=== PATIENT | female | born 1970 | race African-American/Black ===

== ENCOUNTER 2022-10-02 09:39 | Inpatient (IN) | payer SELFPAY ==
[2022-10-02] VITALS (21 sets, daily range): BP systolic 135–164; BP diastolic 48–79; PULSE 77–91; RESP 16–29; TEMP 36.5–37.1; O2SAT 96–100; BMI 45.6
--- NOTE | ~2022-10-02 | US_ITS ---
EXAMINATION: US pelvic complete DATE: 10/03/2022 12:00 INDICATION: Fibroid uterus. Heavy menses. Comparison:No prior studies for comparison. TECHNIQUE: Multiple transabdominal and endovaginal sonographic images of the pelvis performed. FINDINGS: The uterus measures 17.2 x 11.2 x 13.2 cm. Uterus is diffusely heterogeneous with multiple ill-defined masses, some of which are partially calcified, compatible with fibroids. Largest discrete fibroid measures approximately 10 cm. Endometrium is not delineated due to fibroid changes. The right ovary measures 3.4 x 3.6 x 3.3 cm. There is normal vascularity. The left ovary is not visua lized. There is no free fluid in the pelvis. There are no abnormal masses seen on either side. IMPRESSION: 1. Enlarged fibroid uterus. Endometrium is obscured by fibroid changes. Reviewed, dictated and finalized at location L.
--- NOTE | ~2022-10-02 | XR_ITS ---
EXAMINATION: XR chest 2V DATE: 10/02/2022 10:25 INDICATION: Left anterior intermittent chest pain. TECHNIQUE: Frontal and lateral views of the chest were obtained. COMPARISON: None. FINDINGS: There is no pneumonia, pleural effusion, or pneumothorax. The heart size is normal. IMPRESSION: 1. No acute cardiopulmonary disease. Reviewed, dictated and finalized at location A.
--- NOTE | 2022-10-02 09:41 | ECG_ITS ---
Measurements Intervals [place] Rate: 89 P: 75 SD: 162 QRS: -25 QRSD: 97 T: 15 QT: 370 QTc: 450 Interpretive Statements SINUS RHYTHM BORDERLINE LEFT AXIS DEVIATION [QRS AXIS < -20] NO PREVIOUS ECG AVAILABLE FOR COMPARISON Electronically Signed On 10-02-2022 11:50:41 CDT by Ole Tabor M.D.
--- NOTE | 2022-10-02 09:48 | ED.CHESTPAIN ---
HPI - Chest Pain General Chief Complaint: Chest Pain <CASSIE Lopez Last Filed: 10/02/22 18:31> Stated Complaint: chest pain <CASSIE Lopez Last Filed: 10/02/22 18:31> Time Seen by Provider: 10/02/22 09:46 <CASSIE Lopez Last Filed: 10/02/22 18:31> Source: patient <CASSIE Lopez Last Filed: 10/02/22 18:31> Mode of arrival: ambulatory <CASSIE Lopez Last Filed: 10/02/22 18:31> Limitations: no limitations <CASSIE Lopez Last Filed: 10/02/22 18:31> History of Present Illness HPI narrative: Patient is a 52-year-old female who presents to the ED with c/o L sided CP. Patient reports she developed pain in her left-sided upper chest yesterday afternoon. The pain has been intermittent since then, reported as a brief sharp pain occurring every few minutes. She states pain is worse with movement of her trunk and extremities, denies aggravation with exertion. Pain somewhat radiates to left upper back, denies radiation to neck or jaw, left arm. She has not tried anything for the pain. She had an episode of pain this morning at work and her coworkers recommended she come here. Patient denies any significant pain currently. Denies trouble breathing, shortness of breath, lower extremity pain or swelling, recent cough or cold symptoms, abdominal pain, nausea, vomiting, fevers. Patient denies history of hypertension, hyperlipidemia, diabetes, smoking. Denies history of blood clots. Denies family history of heart disease. Patient mentions she has been increasingly stressed lately and is nearing the anniversary of her daughter's . <CASSIE Lopez Last Filed: 10/02/22 18:31> Related Data Home Medications: Home Medications Medication Instructions Recorded Confirmed omeprazole 20 mg tablet,delayed 20 mg PO BID 10/02/22 10/02/22 release <CASSIE Lopez Last Filed: 10/02/22 18:31> Allergies/Adverse Reactions: Allergies Allergy/AdvReac Type Severity Reaction Status Date / Time No Known Allergies Allergy Verified 10/02/22 10:27 <Nissa Lockhart PA-C - Last Filed: 10/02/22 18:31> Review of Systems Review of Systems: CONSTITUTIONAL: Denies fever, chills, or sweats. EYES: Denies visual changes, redness, or discharge. ENT: Denies rhinorrhea, congestion, sore throat, or otalgia. CARDIOVASCULAR: See HPI. RESPIRATORY: Denies cough, pleuritic pain, or dyspnea. GASTROINTESTINAL: Denies abdominal pain, nausea, vomiting. MUSCULOSKELETAL: See HPI. NEUROLOGIC: Denies headache, numbness, or weakness. <Nissa Lockhart PA-C - Last Filed: 10/02/22 18:31> All systems reviewed & are unremarkable except as noted in HPI and below <Nissa Lockhart PA-C - Last Filed: 10/02/22 18:31> [facility] Past Medical History Medical History: Medical History Anemia Chronic GERD Uterine fibroid <Nissa Lockhart PA-C - Last Filed: 10/02/22 18:31> Surgical History Surgical History: Surgical History H/O section 2 H/O eye surgery H/O foot surgery <Nissa Lockhart PA-C - Last Filed: 10/02/22 18:31> Family History Family History: Family History Mother Hypertension Father Hypertension <Nissa Lockhart PA-C - Last Filed: 10/02/22 18:31> Social History Social History: Social History Social History: She is single and has 2 children. She works for a [employer]. She is lifelong nonsmoker. code status full code Smoking status: Never smoker Alcohol intake: current Drinks per week: 6 Substance use: never Lack of Transportation: No Lack of Food: Never True Cur
[2022-10-02 10:11] LABS: Basophils Absolute Auto 0.1 K/mm3 (0.0-0.1); Basophils Percent Auto 0.7 % (0.2-1.2); Eosinophils Absolute Auto 0.2 K/mm3 (0-0.3); Eosinophils Percent Auto 2.2 % (0-4.4); Immature Granulocyte Absolute 0.03 K/mm3 (0.00-0.031); Immature Granulocyte Percent A 0.4 % (0-0.5); Lymphocytes Absolute Auto 1.41 K/mm3 (0.9-3.2); Lymphocytes Percent Auto 18.4 % (18.3-44.2); Mean Corpuscular Volume 76.1 fl (80-100); Mean Platelet Volume 10.2 fl (7.4-10.4); Monocytes Absolute Auto 0.8 K/mm3 (0.1-0.6); Monocytes Percent Auto 10.2 % (2.6-8.5); Neutrophils Absolute Auto 5.2 K/mm3 (1.3-6.7); Neutrophils Percent Auto 68.1 % (45.5-73.1); Nucleated Red Blood Cells Perc 0.5 % (0.0-0.2); Platelet Count Result 507 k/mm3 (150-375); Red Blood Count 2.89 M/mm3 (4.2-5.4); Red Cell Distribution Width 24.1 % (11.5-14.5); White Blood Count 7.7 K/mm3 (4.5-10.0)
[2022-10-02 10:20] LABS: Alanine Aminotransferase 16 U/L (6-35); Albumin Level 4.4 g/dL (3.5-5.1); Alkaline Phosphatase 43 U/L (38-126); Anion Gap 7 mmol/L (8-16); Aspartate Amino Transferase 25 U/L (14-36); Bilirubin,Total 0.2 mg/dL (0.2-1.3); Blood Urea Nitrogen 3 mg/dL (7-17); Calcium 9.1 mg/dL (8.4-10.2); Carbon Dioxide 22 mmol/L (22-30); Chloride 106 mmol/L (98-107); Estimated CRCL calculation 115 ml/min; Estimated Glomerular Filt Rate > 60; Glucose 94 mg/dL (65-110); Lipase 98 U/L (23-300); Potassium 3.7 mmol/L (3.4-5.0); Sodium 135 mmol/L (137-145)
[2022-10-02 10:26] LABS: Hemoglobin 5.5 g/dL (12.0-15.0)
[2022-10-02 10:27] LABS: Anisocytosis 2+ (NORMAL); Hypochromasia 2+ (NORMAL); Microcytosis 1+ (NORMAL); Platelet Estimate Increased (Adequate); Schistocytes None Seen (NORMAL)
[2022-10-02 10:29] LABS: Partial Thromboplastin Time 26.3 SECONDS (22.3-36.8)
[2022-10-02 10:31] LABS: Troponin I < 0.012 ng/mL (0.000-0.034)
[2022-10-02] MEDS: ASPIRIN 81 MG CHEWABLE TABLET 324 MG PO (10:31)
[2022-10-02 11:00] LABS: Immature Reticulocyte Fraction 5.9 % (3.0-15.9); Reticulocyte Hemoglobin Conten 13.4 pg (28.2-35.7); Reticulocyte Percent 1.26 % (0.7-4.3); Reticulocytes Absolute 0.04 M/mm3 (0.02-0.1)
[2022-10-02 11:02] LABS: Lactate Dehydrogenase 170 U/L (120-246)
[2022-10-02 11:10] LABS: Transferrin 372 mg/dL (206-381)
[2022-10-02 11:15] LABS: Iron 22 ug/dL (37-170)
--- NOTE | 2022-10-02 11:20 | PC.NURSE ---
Blood transfusion consent signed by pt. Pt denies any questions/concerns.
[2022-10-02 11:24] LABS: Percent Iron Saturation 4 % (20-50)
[2022-10-02 11:51] LABS: Ferritin 3.83 ng/mL (11.1-264)
[2022-10-02 12:09] LABS: Folic Acid 6.1 ng/mL (2.76->20)
--- NOTE | 2022-10-02 12:27 | PM.IMHP ---
H&P: HPI History of Present Illness Date/Time: 10/02/22 12:27 Chief Complaint: Chest pain Narrative: This is a 52-year-old female patient who has iron deficiency anemia. She came into the emergency room with complaints of left chest pain. She developed left chest pain that started yesterday. The patient had a sudden brief period of sharp pain that lasts a few minutes. Currently she is not having any symptoms. No nausea vomiting no diarrhea. No bloody stools. The patient stated she does have a uterine fibroid and that she wishes going through menopause. The patient will have a heavy. One month the not have another. For 2 months. The patient is seeking medical advice from her OBGYN. The patient had an episode of pain at work and her co-worker recommended that she come to the emergency room. She has no radiation of pain to her neck or jaw or left arm. She has no previous history of a cardiac disease and only has a history of GERD. No fever chills. Her H&H was found to be 5.5 and 22.0. Her MCV is 76.1. She has microcytic anemia. The patient has a known history of iron deficiency anemia. Ferritin is low at 3.83 TIBC is 534. Iron is 22. Cardiac enzymes are negative x2. Thyroid levels normal. Chest x-ray is no acute cardiopulmonary disease. The patient was given an aspirin and IV fluids. She is to get 2 units of packed red blood cells. The patient is being admitted to observation status on the date of service of 10/02/2022 Review of Systems Review of Systems: All systems reviewed & are unremarkable except as noted in HPI and below Constitutional: Constitutional: Reports as per HPI and Reports no additional constitutional complaints Eyes: Eyes: Reports as per HPI and Reports no additional eye complaints ENT: Reports system reviewed and no additional complaints, except as documented and Reports Normal hearing present Cardiovascular: Cardiovascular: Reports no additional cardiovascular complaints Respiratory: Respiratory: Reports no additional respiratory complaints and Reports no additional respiratory complaints Gastrointestinal: Gastrointestinal: Reports as per HPI and Reports no additional gastrointestinal complaints Musculoskeletal: Musculoskeletal: Reports no additional musculoskeletal complaints Integumentary/Breasts: Skin/Breast: Reports system reviewed and no additional complaints, except as docu and Reports as per HPI Neurologic: Reports system reviewed and no additional complaints, except as documented, Reports as per HPI and Reports Normal hearing present Psychiatric: Psychiatric: Reports no additional psychiatric complaints and Reports as per HPI Endocrine: Endocrine: Reports no additional endocrine complaints Hematologic/Lymphatic: Hematologic/Lymphatic: Reports no additional hematologic/lymphatic complaints Allergic/Immunologic: Allergic/Immunologic: Reports no additional allergic/immunologic complaints [facility] Past Medical History Medical History (Updated 10/02/22 @ 12:28 by Mague Callahan NP) Anemia Chronic GERD Uterine fibroid Surgical History Surgical History (Updated 10/02/22 @ 12:28 by Mague Callahan NP) H/O section 2 H/O eye surgery H/O foot surgery Family History Family History Mother Hypertension Father Hypertension Social History Social History (Updated 10/02/22 @ 16:56 by Mague Callahan NP) Social History: She is single and has 2 children. She works for a [employer]. She is lifelong nonsmoker. code status full code Smoking status: Never smoker Alcohol intake: current Drinks per week: 6 Substance use: never Lack of Transportation: No Lack of Food: Never True Current Housing: I Have Housing Concerned About Future Housing: No Difficulty Paying Gas/Electric Bills: No Difficulty Paying for Meds: No Currently Unemployed: No Education: High School Diploma/GED Difficult
[2022-10-02 13:07] LABS: Troponin I < 0.012 ng/mL (0.000-0.034)
--- NOTE | 2022-10-02 14:26 | ADMGEN ---
This patient, Marie Huizar, was admitted to Medical Room 349-01. Patient/family oriented to hospital policies and general routines including ID bracelet, bed and alarms, visiting hours, pain management, procedures, bathroom and other care routines, personal items, smoking policy, room service/diet, and visiting hours. Information on how to activate the Rapid Response Team has been discussed. Patient/Family are encouraged to report perceived risks to care and to ask questions if they do not understand what they are told or what they should do.
[2022-10-02] MEDS: SODIUM CHLORIDE 0.9% IV 250 ML 30 ML IV CONT (15:29)
[2022-10-02 16:54] LABS: Troponin I < 0.012 ng/mL (0.000-0.034)
[2022-10-02 22:57] LABS: Hemoglobin 7.6 g/dL (12.0-15.0)
[2022-10-03 05:10] VITALS: BP 156/71; PULSE 83; RESP 17; TEMP 36; O2SAT 100
[2022-10-03 05:59] LABS: Hematocrit 25.6 % (37.0-47.0)
[2022-10-03 06:16] LABS: Alanine Aminotransferase 15 U/L (6-35); Albumin Level 3.9 g/dL (3.5-5.1); Alkaline Phosphatase 48 U/L (38-126); Anion Gap 4 mmol/L (8-16); Aspartate Amino Transferase 29 U/L (14-36); Bilirubin,Total 0.5 mg/dL (0.2-1.3); Blood Urea Nitrogen 5 mg/dL (7-17); Calcium 8.8 mg/dL (8.4-10.2); Carbon Dioxide 25 mmol/L (22-30); Chloride 104 mmol/L (98-107); Estimated CRCL calculation 114 ml/min; Estimated Glomerular Filt Rate > 60; Glucose 106 mg/dL (65-110); Magnesium 1.9 mg/dL (1.6-2.3); Potassium 3.5 mmol/L (3.4-5.0); Sodium 133 mmol/L (137-145)
[2022-10-03] MEDS: ACETAMINOPHEN 500 MG TABLET 1000 MG PO ×2 (06:55→12:27)
[2022-10-03] MEDS: PANTOPRAZOLE 40 MG TABLET PO ×2 (08:16→17:16)
[2022-10-03] MEDS: FERROUS SULFATE 325 MG TABLET DR PO (08:16)
[2022-10-03 09:04] LABS: Hematocrit 26.1 % (37.0-47.0); Hemoglobin 7.2 g/dL (12.0-15.0)
--- NOTE | 2022-10-03 11:18 | PM.IMPN ---
Progress Note: A&P Assessment and Plan (1) Anemia: Code(s): D64.9 - Anemia, unspecified Status: Acute Assessment and Plan: Microcytic anemia with the history of chronic iron deficiency anemia. The patient stated that she has not been taking her iron and that she has a known diagnosis of are iron deficiency anemia. Resume iron supplement. STAFF PHYSICAL THERAPIST consult (2) Left-sided chest wall pain: Code(s): R07.89 - Other chest pain Status: Acute Assessment and Plan: Continue to trend troponin. The patient has no further chest pain. (3) Uterine fibroid: Code(s): D25.9 - Leiomyoma of uterus, unspecified Status: Acute Assessment and Plan: The patient stated that she will miss periods and then have a heavy. When she finally has 1. I explained that she needed to follow-up with her OBGYN. The patient stated she does have uterine fibroids and is planning on some type of procedure. Subjective Date/time seen: 10/03/22 11:18 Interval history: No new complaints Exam Const: General: cooperative, healthy appearing, comfortable, no acute distress, well developed, awake, Physically active, average body habitus and well nourished Nutritional Appearance: average body habitus and well nourished Orientation/consciousness: oriented to person, oriented to place, oriented to time and patient oriented x3 Limitations: no limitations HENMT: Head: normal to inspection, No palpable skull fracture present, normocephalic and atraumatic Ears: hearing grossly normal bilaterally and external ears normal Face/Nose/Sinus: Normal external nose present and Normal nares present Eyes: General: appearance normal, both eyes and all related structures Alignment and Position: alignment normal Periorbital: periorbital findings normal Eyelids: eyelids normal Sclera: sclerae normal Pupils: Equal, round and reactive pupils present EOM: EOMs intact bilaterally Neck: Neck: normal visual inspection, full ROM, no lymphadenopathy, trachea midline and supple Chest: Chest palpation & inspection: normal inspection of the chest Resp: Effort & Inspection: normal respiratory effort Auscultation: clear to auscultation bilaterally Cardio: Palpation: normal PMI Rate: regular rate Rhythm: regular rhythm Heart sounds: S1 normal heart sound present and S2 normal heart sound present Peripheral pulses: Peripheral pulses 2+ throughout GI: Inspection: normal to inspection Auscultation: normal bowel sounds Rectal Exam: deferred : General: Yes no CVA tenderness Back/Spine/Pelvis: Back: no CVA tenderness Cervical Spine: cervical ROM normal Thoracic/Lumbar Spine: thoracic and lumbar spine normal to inspection Pelvis: no pain with anterior-posterior compression Skin: General skin exam: normal color Lesions: no lesions Rashes: no rashes Trauma: no lacerations or abrasions Wounds: no wounds Hair: normal Nails: normal Neuro: General: oriented to person, oriented to place, oriented to time and patient oriented x3 Cranial nerves: Yes Equal, round and reactive pupils present and Yes Normal hearing present Cognition (Neuro): normal cognition Speech: normal speech Gait exam (Neuro): Normal gait present Motor exam (neuro): 5/5 motor strength present throughout Sensory Exam: normal sensation Extrem: General: normal to inspection Right upper extremity: normal to inspection and shoulder/upper arm Left upper extremity: normal to inspection and shoulder/upper arm Right lower extremity: normal to inspection and edema Left lower extremity: normal to inspection and edema Psych: Appearance: grossly normal Mental Status: mental status grossly normal Speech and movement: Normal speech and movement present Affect: normal affect Attitude: cooperative Thought process: Normal thought process present Insight: Good insight present (Psych) Judgement: Good judgement present (Psych) Objective Data Vital Signs Vital Signs: Vital Signs - 24
--- NOTE | 2022-10-03 12:52 | WPDCN ---
Assessment and Plan Assessment and plan (1) Uterine fibroid: Code(s): D25.9 - Leiomyoma of uterus, unspecified Status: Acute Assessment and Plan: I discussed with her what fibroids are and discuss treatment options to include hysterectomy myomectomy and also discussed uterine fibroid embolization. Discussed that the fibroids is the cause of the bleeding but we also have to rule out any type of endometrial malignancy and not assume it is just the fibroids. Initially she stated she would prefer not to have a surgery. I discussed with her that before she has anything done she has to get the complete workup which includes an endometrial biopsy and her anemia needs to be improved before a definitive procedure is performed. Discussed in detail what is involved with a myomectomy and with a hysterectomy. My recommendation at her age since she is still in early menopause transition would be a hysterectomy after the appropriate workup. I do not feel she would have a success with a uterine fibroid embolization and has higher risk with abdominal myomectomy, she is not an optimal candidate for a laparoscopic myomectomy. She stated that prior to this admission she was going to make an appointment with someone that was closer to where she lived. I discussed with her options of oral progesterone which may help minimize the menorrhagia until she has the endometrial biopsy and decides on a procedure. She agrees with starting the oral progesterone. Discussed side effects of the progesterone. I also discussed with her option of an IUD progesterone only which informed her that her uterus may not be able to accommodate this but she states she would not want any type of IUD. Her questions were answered. I will start the progesterone. She will need to continue the iron therapy. The rest of her workup will need to be performed outpatient. She will need to make an appointment when she is released to see me or her preferred/closer provider to get the appropriate workup with an endometrial biopsy before scheduling a procedure. I will sign off on her care. She should be provided with my office number to schedule the follow-up. (2) Symptomatic anemia: Code(s): D64.9 - Anemia, unspecified Status: Acute HPI Data of Consult Date/Time: 10/03/22 12:52 Requesting Physician: Aleta Collins DO Primary Care Provider: PHYSICIAN NOT ON STAFF Consult Narrative Reason for consult: Fibroid uterus Narrative: Marie Huizar is a 52 year old female para 2 perimenopausal female presented to the emergency department for left-sided chest pain and she was found to be severely anemic. She does have a known history of a fibroid uterus. She states that she was going to get evaluated for the fibroids after her insurance was active after October 20. She does have a long history menorrhagia which she states is for 2 days and then regular flow for 5 days. She has had mostly monthly periods there has only been 1 time where she skipped a period for 2 months. She is also having hot flashes and night sweats. Denies any bleeding in between periods. Denies dysmenorrhea. She is not tried any medication or prescribed any medication to help with her bleeding. Ultrasound from today confirmed a large fibroid uterus. Patient has received blood during this admission. She states that she started her period a few days ago. Review of Systems Review of Systems: All systems reviewed & are unremarkable except as noted in HPI and below Constitutional: Constitutional: Reports as per HPI Eyes: Eyes: Reports no additional eye complaints Cardiovascular: Cardiovascular: Reports as per HPI Respiratory: Respiratory: Reports as per HPI Gastrointestinal: Gastrointestinal: Denies abdominal pain Genitourinary: Genitourinary: Reports as per HPI Psychiatric: Psychiatric: Reports no additional psychiatric complaints Endocrine: Comments: Night sweats
[2022-10-03 13:49] VITALS: BP 143/61; PULSE 73; RESP 18; TEMP 36.6; O2SAT 98
[2022-10-03 13:57] LABS: Hematocrit 26.8 % (37.0-47.0); Hemoglobin 7.3 g/dL (12.0-15.0)
[2022-10-03 20:13] VITALS: BP 158/75; PULSE 71; RESP 14; TEMP 36.8; O2SAT 99
[2022-10-03 20:47] LABS: Hematocrit 25.7 % (37.0-47.0)
[2022-10-04] VITALS (12 sets, daily range): BP systolic 142–172; BP diastolic 60–74; PULSE 71–90; RESP 14–18; TEMP 36.1–36.9; O2SAT 100
[2022-10-04 02:48] LABS: Hematocrit 25.6 % (37.0-47.0)
[2022-10-04 02:55] LABS: Hemoglobin 6.9 g/dL (12.0-15.0)
[2022-10-04] MEDS: hydrALAZINE HCL 20 MG/ML VIAL 10 MG IV PUSH (05:59)
[2022-10-04] MEDS: PANTOPRAZOLE 40 MG TABLET PO ×2 (08:24→17:34)
[2022-10-04] MEDS: FERROUS SULFATE 325 MG TABLET DR PO (08:24)
[2022-10-04 08:40] LABS: Hematocrit 26.9 % (37.0-47.0); Hemoglobin 7.4 g/dL (12.0-15.0)
--- NOTE | 2022-10-04 11:41 | PM.IMPN ---
Progress Note: A&P Assessment and Plan (1) Anemia: Code(s): D64.9 - Anemia, unspecified Status: Acute Assessment and Plan: Microcytic anemia with the history of chronic iron deficiency anemia. The patient stated that she has not been taking her iron and that she has a known diagnosis of are iron deficiency anemia. Resume iron supplement. AMBULANCE OFFICER consult (2) Left-sided chest wall pain: Code(s): R07.89 - Other chest pain Status: Acute Assessment and Plan: Continue to trend troponin. The patient has no further chest pain. (3) Uterine fibroid: Code(s): D25.9 - Leiomyoma of uterus, unspecified Status: Acute Assessment and Plan: The patient stated that she will miss periods and then have a heavy. When she finally has 1. I explained that she needed to follow-up with her OBGYN. The patient stated she does have uterine fibroids and is planning on some type of procedure. Subjective Date/time seen: 10/04/22 11:41 Interval history: No complaints, still anemic, still bleeding. Exam Const: General: cooperative, healthy appearing, comfortable, no acute distress, well developed, awake, Physically active, average body habitus and well nourished Nutritional Appearance: average body habitus and well nourished Orientation/consciousness: oriented to person, oriented to place, oriented to time and patient oriented x3 Limitations: no limitations HENMT: Head: normal to inspection, No palpable skull fracture present, normocephalic and atraumatic Ears: hearing grossly normal bilaterally and external ears normal Face/Nose/Sinus: Normal external nose present and Normal nares present Eyes: General: appearance normal, both eyes and all related structures Alignment and Position: alignment normal Periorbital: periorbital findings normal Eyelids: eyelids normal Sclera: sclerae normal Pupils: Equal, round and reactive pupils present EOM: EOMs intact bilaterally Neck: Neck: normal visual inspection, full ROM, no lymphadenopathy, trachea midline and supple Chest: Chest palpation & inspection: normal inspection of the chest Resp: Effort & Inspection: normal respiratory effort Auscultation: clear to auscultation bilaterally Cardio: Palpation: normal PMI Rate: regular rate Rhythm: regular rhythm Heart sounds: S1 normal heart sound present and S2 normal heart sound present Peripheral pulses: Peripheral pulses 2+ throughout GI: Inspection: normal to inspection Auscultation: normal bowel sounds Rectal Exam: deferred : General: Yes no CVA tenderness Back/Spine/Pelvis: Back: no CVA tenderness Cervical Spine: cervical ROM normal Thoracic/Lumbar Spine: thoracic and lumbar spine normal to inspection Pelvis: no pain with anterior-posterior compression Skin: General skin exam: normal color Lesions: no lesions Rashes: no rashes Trauma: no lacerations or abrasions Wounds: no wounds Hair: normal Nails: normal Neuro: General: oriented to person, oriented to place, oriented to time and patient oriented x3 Cranial nerves: Yes Equal, round and reactive pupils present and Yes Normal hearing present Cognition (Neuro): normal cognition Speech: normal speech Gait exam (Neuro): Normal gait present Motor exam (neuro): 5/5 motor strength present throughout Sensory Exam: normal sensation Extrem: General: normal to inspection Right upper extremity: normal to inspection and shoulder/upper arm Left upper extremity: normal to inspection and shoulder/upper arm Right lower extremity: normal to inspection and edema Left lower extremity: normal to inspection and edema Psych: Appearance: grossly normal Mental Status: mental status grossly normal Speech and movement: Normal speech and movement present Affect: normal affect Attitude: cooperative Thought process: Normal thought process present Insight: Good insight present (Psych) Judgement: Good judgement present (Psych) Objective Data Vital Signs Vital
[2022-10-04] MEDS: SODIUM CHLORIDE 0.9% IV 250 ML 30 ML IV CONT (12:29)
[2022-10-05 00:57] LABS: Basophils Absolute Auto 0.1 K/mm3 (0.0-0.1); Basophils Percent Auto 0.8 % (0.2-1.2); Eosinophils Absolute Auto 0.3 K/mm3 (0-0.3); Eosinophils Percent Auto 2.5 % (0-4.4); Hematocrit 32.3 % (37.0-47.0); Hemoglobin 9.4 g/dL (12.0-15.0); Immature Granulocyte Absolute 0.04 K/mm3 (0.00-0.031); Immature Granulocyte Percent A 0.3 % (0-0.5); Lymphocytes Absolute Auto 1.71 K/mm3 (0.9-3.2); Lymphocytes Percent Auto 14.9 % (18.3-44.2); Mean Corpuscular HGB Conc 29.1 g/dl (32-36); Mean Corpuscular Hemoglobin 23.3 pg (26-34); Mean Corpuscular Volume 80.1 fl (80-100); Mean Platelet Volume 10.3 fl (7.4-10.4); Monocytes Absolute Auto 0.8 K/mm3 (0.1-0.6); Monocytes Percent Auto 6.8 % (2.6-8.5); Neutrophils Absolute Auto 8.6 K/mm3 (1.3-6.7); Neutrophils Percent Auto 74.7 % (45.5-73.1); Nucleated Red Blood Cells Absolute Auto 0.1 K/mm3 (0.0-0.012); Platelet Count Result 430 k/mm3 (150-375); Red Blood Count 4.03 M/mm3 (4.2-5.4); Red Cell Distribution Width 23.8 % (11.5-14.5); White Blood Count 11.5 K/mm3 (4.5-10.0)
[2022-10-05 01:29] LABS: Anisocytosis 2+ (NORMAL); Platelet Estimate Adequate (Adequate); Poikilocytosis 2+ (NORMAL)
[2022-10-05 01:30] LABS: Schistocytes None Seen (NORMAL)
[2022-10-05 06:00] VITALS: BP 147/80; PULSE 73; RESP 18; TEMP 36.2; O2SAT 100
[2022-10-05] MEDS: FERROUS SULFATE 325 MG TABLET DR PO (08:18)
[2022-10-05] MEDS: PANTOPRAZOLE 40 MG TABLET PO (08:18)
--- NOTE | 2022-10-05 11:29 | PM.DS ---
DS: Admitting Diagnosis Discharge Date October 05, 2022 Admitting Diagnosis Anemia DS: Discharge Diagnosis Discharge Diagnosis (1) Anemia: Code(s): D64.9 - Anemia, unspecified Status: Acute Assessment and Plan: Microcytic anemia with the history of chronic iron deficiency anemia. The patient stated that she has not been taking her iron and that she has a known diagnosis of are iron deficiency anemia. Resume iron supplement. [employer]Y [employer]IVER consult (2) Left-sided chest wall pain: Code(s): R07.89 - Other chest pain Status: Acute Assessment and Plan: Continue to trend troponin. The patient has no further chest pain. (3) Uterine fibroid: Code(s): D25.9 - Leiomyoma of uterus, unspecified Status: Acute Assessment and Plan: The patient stated that she will miss periods and then have a heavy. When she finally has 1. I explained that she needed to follow-up with her OBGYN. The patient stated she does have uterine fibroids and is planning on some type of procedure. DS: Summary Hospital Course Hospital Course: Admitted for symptomatic anemia with chest pain. Anemia was secondary to dysfunctional uterine bleeding. construction manager was consulted and will follow up patient. Continue iron and progesterone on discharge. No cardiac etiology for chest pain. She can be discharged Time Spent with Patient Time attestation: Total time spent providing and/or coordinating discharge services: Exam Const: General: cooperative, healthy appearing, comfortable, no acute distress, well developed, awake, Physically active, average body habitus and well nourished Nutritional Appearance: average body habitus and well nourished Orientation/consciousness: oriented to person, oriented to place, oriented to time and patient oriented x3 Limitations: no limitations HENMT: Head: normal to inspection, No palpable skull fracture present, normocephalic and atraumatic Ears: hearing grossly normal bilaterally and external ears normal Face/Nose/Sinus: Normal external nose present and Normal nares present Eyes: General: appearance normal, both eyes and all related structures Alignment and Position: alignment normal Periorbital: periorbital findings normal Eyelids: eyelids normal Sclera: sclerae normal Pupils: Equal, round and reactive pupils present EOM: EOMs intact bilaterally Neck: Neck: normal visual inspection, full ROM, no lymphadenopathy, trachea midline and supple Chest: Chest palpation & inspection: normal inspection of the chest Resp: Effort & Inspection: normal respiratory effort Auscultation: clear to auscultation bilaterally Cardio: Palpation: normal PMI Rate: regular rate Rhythm: regular rhythm Heart sounds: S1 normal heart sound present and S2 normal heart sound present Peripheral pulses: Peripheral pulses 2+ throughout GI: Inspection: normal to inspection Auscultation: normal bowel sounds Rectal Exam: deferred : General: Yes no CVA tenderness Back/Spine/Pelvis: Back: no CVA tenderness Cervical Spine: cervical ROM normal Thoracic/Lumbar Spine: thoracic and lumbar spine normal to inspection Pelvis: no pain with anterior-posterior compression Skin: General skin exam: normal color Lesions: no lesions Rashes: no rashes Trauma: no lacerations or abrasions Wounds: no wounds Hair: normal Nails: normal Neuro: General: oriented to person, oriented to place, oriented to time and patient oriented x3 Cranial nerves: Yes Equal, round and reactive pupils present and Yes Normal hearing present Cognition (Neuro): normal cognition Speech: normal speech Gait exam (Neuro): Normal gait present Motor exam (neuro): 5/5 motor strength present throughout Sensory Exam: normal sensation Extrem: General: normal to inspection Right upper extremity: normal to inspection and shoulder/upper arm Left upper extremity: normal to inspection and shoulder/upper arm Right lower extremity: normal to inspection and edema Le
[2022-10-06 14:15] LABS: FSH 7.5 mIU/mL (***)
== END 2022-10-05 13:05 | disposition home or self-care (01) | DRG 532 ==
LOC: ANHED 13:57 → ANH3MED 14:05
PROVIDERS: Emergency Medicine; Internal Medicine; Nurse Practitioner; Obstetrics & Gynecology; Physician Assistant; Admitting Provider Student in an Organized Health Care Education/Training Program; Emergency Provider Physician Assistant; Visit Provider Chiropractor
DX: D25.9 Leiomyoma of uterus, unspecified (principal); D50.9 Iron deficiency anemia, unspecified; N92.0 Excessive and frequent menstruation with regular cycle; R07.89 Other chest pain; K21.9 Gastro-esophageal reflux disease without esophagitis
CPT/HCPCS: 36415; 36430; 71046; 76856; 80053; 82607; 82728; 82746; 83001; 83540; 83550; 83615; 83690; 83735; 84443; 84466; 84484; 85014; 85018; 85025; 85046; 85610; 85730; 86850; 86900; 86901; 86923; 93005; 96361; 96365; 96374; 99285; A9270; G0378; J0360; J1756; J7050; P9016